=== PATIENT | female | born 1940 | race Hispanic/Latino ===

== ENCOUNTER 2016-11-27 21:58 | Emergency (ER) | payer MEDICARE, OTHER ==
[2016-11-27] MEDS ORDERED: NACL 0.9% 1000 ML 1,000 ML IV ONE ×2 (22:51→23:17)
--- NOTE | 2016-11-27 23:22 | Emergency Department Report ---
ED Abdominal Pain HPI - General Chief Complaint: Nausea/Vomiting/Diarrhea Stated Complaint: NAUSEA/EMESIS Time Seen by Provider: 11/27/16 23:11 Source: patient Mode of arrival: Stretcher Limitations: No Limitations - History of Present Illness Initial Comments: Patient is a 75-year-old female with a history of hypertension, diabetes, tremors who presents with 5 hours of abdominal cramping, nausea, vomiting, and diarrhea. Patient reports she had lunch 11:00 AM at home and then later in the afternoon started to vomit and have diarrhea, patient reports 13 episodes of vomiting non bloody nonbilious and diarrhea nonbloody. Eyes no fevers, chills, shortness of breath, chest pain, trauma, travel, new antibiotics, or sick contacts. MD Complaint: abdominal pain, other (NVD) -: hour(s) (5) Location: diffuse Radiation: none Migration to: no migration Severity: moderate Severity scale (0 -10): 5 Consistency: constant Improves With: nothing Worsens With: nothing Context: possible food poisoning Associated Symptoms: nausea, vomiting, diarrhea - Related Data Previous Rx's Medication Instructions Recorded Last Taken Type Ondansetron [Zofran ODT TAB] 8 mg PO Q8HR PRN #12 tab.rapdis 11/28/16 Unknown Rx Allergies Allergy/AdvReac Type Severity Reaction Status Date / Time codeine AdvReac Unknown Verified 11/27/16 23:06 lovastatin [From Mevacor] AdvReac Unknown Verified 11/27/16 23:06 ED Review of Systems ROS: Stated complaint: NAUSEA/EMESIS Other details as noted in HPI Comment: All other systems reviewed and negative ED Past Medical Hx - Past Medical History Previous Medical History?: Yes Hx Congestive Heart Failure: Yes Hx Diabetes: Yes - Surgical History Past Surgical History?: Yes Hx Internal Defibrillator: Yes - Social History Smoking Status: Former Smoker - Medications Home Medications: Home Medications Medication Instructions Recorded Confirmed Last Taken Type Ondansetron [Zofran ODT TAB] 8 mg PO Q8HR PRN #12 tab.rapdis 11/28/16 Unknown Rx ED Physical Exam - General Limitations: No Limitations General appearance: alert, in no apparent distress - Head Head exam: Present: atraumatic, normocephalic - Eye Eye exam: Present: normal appearance - ENT ENT exam: Present: mucous membranes moist - Neck Neck exam: Present: normal inspection - Respiratory Respiratory exam: Present: normal lung sounds bilaterally. Absent: respiratory distress - Cardiovascular Cardiovascular Exam: Present: regular rate, normal rhythm. Absent: systolic murmur, diastolic murmur, rubs, gallop - GI/Abdominal GI/Abdominal exam: Present: soft, tenderness (diffuse), normal bowel sounds. Absent: distended, guarding, rebound, rigid, mass, hernia - Extremities Exam Extremities exam: Present: normal inspection - Back Exam Back exam: Present: normal inspection - Neurological Exam Neurological exam: Present: alert, oriented X3 - Psychiatric Psychiatric exam: Present: normal affect, normal mood - Skin Skin exam: Present: warm, dry, intact, normal color. Absent: rash ED Course Vital Signs 11/27/16 11/27/16 11/27/16 22:40 23:07 23:12 Temperature 97.8 F Pulse Rate 82 84 Respiratory 18 18 18 Rate Blood Pressure 168/75 Blood Pressure 168/75 153/74 [Left] O2 Sat by Pulse 100 100 Oximetry 11/28/16 11/28/16 01:08 03:06 Temperature Pulse Rate 86 84 Respiratory 16 18 Rate Blood Pressure Blood Pressure 152/65 148/62 [Left] O2 Sat by Pulse 97 100 Oximetry ED Medical Decision Making - Lab Data Result diagrams: 11/27/16 22:56 11/27/16 22:56 - EKG Data -: EKG Interpreted by Me (23:26) EKG shows normal: sinus rhythm, axis (normal axis, no LVH), intervals (QTc:484ms ), QRS complexes, ST-T waves ((-)ST T changes, no STEMI) Rate: normal (77bpm) - EKG Data When compared to previous EKG there are: previous EKG unavailable - Radiology Data Radiology results: report reviewed - Medical Decision Making X-ray abdomen: Acute pathology as visualized by me. No air-fluid levels. No dilation of bowel loops. Pt re-evaluated, patient is now walking in the ED and reports all her sx have subsided. pt and son report they think her nervousness causes her to throw up, however I did explain to them she still needs PMD follow up and may need GI follow up, they understood Critical care attestation.: If time is entered above; I have spent that time in minutes in the direct care of this critically ill patient, excluding procedure time. ED Disposition Clinical Impression: Abdominal pain, Nausea & vomiting, Dehydration Disposition: DISCHARGED TO HOME OR SELFCARE Is pt being admited?: No Condition: Stable Instructions: Acute Abdominal Pain (ED), Acute Nausea and Vomiting (ED), Dehydration (ED) Prescriptions: Ondansetron [Zofran ODT TAB] 8 mg PO Q8HR PRN #12 tab.rapdis PRN Reason: nausea Referrals: PRIMARY CARE,MD [Primary Care Provider] - 3-5 Days
[2016-11-27 23:35] LABS: Calcium 9.7 mg/dL (8.4-10.2); Chloride 99.2 mmol/L (98-107); Potassium 4.1 mmol/L (3.6-5.0)
[2016-11-27 23:48] LABS: Alanine Aminotransferase 22 units/L (7-56); Albumin 4.3 g/dL (3.9-5); Albumin/Globulin Ratio 1.4 %; Alkaline Phosphatase 118 units/L (35-129); Bilirubin,Total 0.5 mg/dL (0.1-1.2); Lipase 39 units/L (13-60); Total Protein 7.4 g/dL (6.3-8.2)
[2016-11-28 00:02] LABS: Basophils % (Auto) 0.3 % (0.0-1.8); Eosinophils % (Auto) 1.2 % (0.0-4.3); Hematocrit 43.7 % (30.3-42.9); Hemoglobin 14.5 gm/dl (10.1-14.3); Mean Corpuscular HGB Conc 33 % (30-34); Mean Corpuscular Hemoglobin 32 pg (28-32); Mean Corpuscular Volume 96 fl (79-97); Red Blood Count 4.56 M/mm3 (3.65-5.03); White Blood Count 14.7 K/mm3 (4.5-11.0)
[2016-11-28 00:05] LABS: Platelet Count 68 K/mm3 (140-440)
[2016-11-28 00:12] LABS: Bilirubin,Direct < 0.2 mg/dL (0-0.2); Bilirubin,Indirect 0.3 mg/dL
[2016-11-28 03:08] VITALS: BP 148/62
--- NOTE | 2016-11-28 09:03 | XRay Report ---
Flat and upright views of the abdomen. History: Abdominal pain. Findings: Several loops of gas-filled small bowel are seen in the upper abdomen with a paucity of gas in the distal small bowel and colon. No free air seen on upright view. No significant intra-abdominal calcifications or organomegaly are seen. The bony structures are unremarkable. Impression: Local small bowel ileus versus early small bowel obstruction.
== END 2016-11-28 03:50 | disposition home or self-care (01) ==
LOC: ED 21:58
DX: E86.0 Dehydration (principal); R10.9 Unspecified abdominal pain; R11.2 Nausea with vomiting, unspecified; I50.9 Heart failure, unspecified; E11.9 Type 2 diabetes mellitus without complications; Z88.5 Allergy status to narcotic agent; Z87.891 Personal history of nicotine dependence; Z88.8 Allergy status to other drugs, medicaments and biological substances
CPT/HCPCS: 36415; 74020; 80048; 80074; 83690; 83735; 84484; 85025; 93005; 93010; 96360; 96361; 99285; J7030

== ENCOUNTER 2021-03-05 11:45 | Emergency (ER) | payer MEDICARE, OTHER ==
--- NOTE | 2021-03-05 11:57 | Event Note ---
ED Screening Note Date of service: 03/05/21 Time: 11:57 ED Screening Note: Patient complains of chest pain and abdominal pain for 10 days Has been seen at injury twice for the same This initial assessment/diagnostic orders/clinical plan/treatment(s) is/are subject to change based on patients health status, clinical progression and re- assessment by fellow clinical providers in the ED. Further treatment and workup at subsequent clinical providers discretion. Patient/guardian urged not to elope from the ED as their condition may be serious if not clinically assessed and managed. Initial orders include: Labs EKG Chest x-ray
[2021-03-05 12:10] VITALS: BP 170/76
[2021-03-05 12:32] LABS: Basophils # (Auto) 0.1 K/mm3 (0.0-0.1); Basophils % (Auto) 0.8 % (0.0-1.8); Eosinophils # (Auto) 0.5 K/mm3 (0.0-0.4); Eosinophils % (Auto) 5.9 % (0.0-4.3); Hematocrit 39.7 % (30.3-42.9); Hemoglobin 13.6 gm/dl (10.1-14.3); Lymphocytes # (Auto) 1.7 K/mm3 (1.2-5.4); Lymphocytes % (Auto) 19.6 % (13.4-35.0); Mean Corpuscular HGB Conc 34 % (30-34); Mean Corpuscular Volume 100 fl (79-97); Monocytes # (Auto) 0.6 K/mm3 (0.0-0.8); Monocytes % (Auto) 6.6 % (0.0-7.3); Platelet Count 113 K/mm3 (140-440); Red Blood Count 3.98 M/mm3 (3.65-5.03); Red Cell Distribution Width 13.6 % (13.2-15.2)
[2021-03-05 12:53] LABS: Alanine Aminotransferase 15 units/L (7-56); Albumin 4.1 g/dL (3.9-5); Blood Urea Nitrogen 10 mg/dL (7-17); Hemolysis Index 5
[2021-03-05 12:59] LABS: BUN/Creatinine Ratio 14
[2021-03-05 13:46] LABS: Bilirubin,Urine NEG (Negative); Blood,Urine NEG (Negative); Color,Urine Yellow (Yellow); Protein,Urine <15 mg/dL mg/dL (Negative); Urobilinogen,Urine < 2.0 mg/dL (<2.0)
--- NOTE | 2021-03-05 14:28 | XRay Report ---
CHEST 2 VIEWS 1401 INDICATION / CLINICAL INFORMATION: CHEST PAIN COMPARISON: 05/05/2020 FINDINGS: SUPPORT DEVICES: Pacer is again seen HEART / MEDIASTINUM: No significant abnormality. LUNGS / PLEURA: Moderate bilateral chronic pulmonary changes are again seen. Considering technique di fferences I do not see obvious acute infiltrate. No pleural effusions are seen. No pneumothorax. ADDITIONAL FINDINGS: No significant additional findings. IMPRESSION: No significant acute abnormality Signer Name: Rogelio Galindo MD Signed: 03/05/2021 2:23 PM Workstation Name: [id number]
[2021-03-05] MEDS ORDERED: ONDANSETRON 4 MG ODT TAB PO ONE (15:17)
[2021-03-05] MEDS ORDERED: traMADol 50 MG TAB PO ONE (15:17)
[2021-03-05] MEDS ORDERED: SUCRALFATE 1 GM/10 ML ORAL LIQD PO ONE (15:18)
--- NOTE | 2021-03-05 16:22 | Emergency Department Report ---
ED Abdominal Pain HPI - General Chief Complaint: Abdominal Pain Stated Complaint: STOMACH PAIN NAUSEA, CHEST PAIN Time Seen by Provider: 03/05/21 11:57 Source: patient Mode of arrival: Wheelchair Limitations: No Limitations - History of Present Illness Initial Comments: Patient is 80-year-old female who is presenting with abdominal discomfort. States the abdominal pain is in the epigastric region. There is no radiation. States she does feel quite nauseous but has not only vomited once or twice. Symptoms been present for the past 2 weeks. Patient is going to emergency department 3 times at outside facilities during this time frame. States she had a CT scan and ultrasound which both were negative. 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 Patient states she was started on omeprazole but still having symptoms and is here to get some help with the discomfort she is having. Severity scale (0 -10): 10 - Related Data Home Medications Medication Instructions Recorded Confirmed Last Taken Advair Diskus 250-50 mcg 1 IH BID 05/06/20 Unknown Atorvastatin 40 mg PO DAILY 05/06/20 05/06/20 Unknown Eplerenone 25 mg PO DAILY 05/06/20 05/06/20 Unknown Fish Oil Story-3 Softgel 1,000 mg PO DAILY 05/06/20 05/06/20 Unknown Forteo 20 mcg PO DAILY 05/06/20 05/06/20 Unknown Gabapentin 600 mg PO BID 05/06/20 05/06/20 Unknown Levothyroxine 125 mcg PO DAILY 05/06/20 05/06/20 Unknown Losartan [Cozaar] 100 mg PO DAILY 05/06/20 05/06/20 Unknown NIFEdipine 30 mg PO DAILY 05/06/20 05/06/20 Unknown Nortriptyline 25 mg PO BID 05/06/20 05/06/20 Unknown Primidone 50 mg PO 05/06/20 Unknown Vitamin B-2 200 mg PO DAILY 05/06/20 05/06/20 Unknown Vitamin D (Nf) 400 PO 05/06/20 Unknown Zolpidem 10 mg PO HS 05/06/20 05/06/20 Unknown hydrALAZINE 25 mg PO Q8H 05/06/20 05/06/20 Unknown Previous Rx's Medication Instructions Recorded Last Taken Type Ondansetron [Zofran ODT TAB] 8 mg PO Q8HR PRN #12 tab.rapdis 11/28/16 Unknown Rx Pantoprazole [Protonix TAB] 40 mg PO QDAC #30 tablet 05/10/20 Unknown Rx Ondansetron [Zofran Odt] 4 mg PO Q8HR #10 tab.rapdis 03/05/21 Unknown Rx Sucralfate [Carafate] 1 gm PO Q6HR 15 Days udc 03/05/21 Unknown Rx traMADoL [Ultram] 50 mg PO Q6HR PRN #10 tablet 03/05/21 Unknown Rx Allergies Allergy/AdvReac Type Severity Reaction Status Date / Time codeine AdvReac Unknown Verified 03/05/21 11:55 lovastatin [From Mevacor] AdvReac Unknown Verified 03/05/21 11:55 ED Review of Systems ROS: Stated complaint: STOMACH PAIN NAUSEA, CHEST PAIN Other details as noted in HPI Comment: All other systems reviewed and negative ED Past Medical Hx - Past Medical History Hx Hypertension: Yes Hx Congestive Heart Failure: Yes Hx Diabetes: Yes Hx COPD: Yes - Surgical History Hx Pacemaker: Yes Hx Internal Defibrillator: Yes - Social History Smoking Status: Former Smoker - Medications Home Medications: Home Medications Medication Instructions Recorded Confirmed Last Taken Type Ondansetron [Zofran ODT TAB] 8 mg PO Q8HR [facility] 05/06/20 Unknown Rx Advair Diskus 250-50 mcg 1 IH BID 05/06/20 Unknown History Atorvastatin 40 mg PO DAILY 05/06/20 05/06/20 Unknown History Eplerenone 25 mg PO DAILY 05/06/20 05/06/20 Unknown History Fish Oil Story-3 Softgel 1,000 mg PO DAILY 05/06/20 05/06/20 Unknown History Forteo 20 mcg PO DAILY 05/06/20 05/06/20 Unknown History Gabapentin 600 mg PO BID 05/06/20 05/06/20 Unknown History Levothyroxine 125 mcg PO DAILY 05/06/20 05/06/20 Unknown History Losartan [Cozaar] 100 mg PO DAILY 05/06/20 05/06/20 Unknown History NIFEdipine 30 mg PO DAILY 05/06/20 05/06/20 Unknown History Nortriptyline 25 mg PO BID 05/06/20 05/06/20 Unknown History Primidone 50 mg PO 05/06/20 Unknown History Vitamin B-2 200 mg PO DAILY 05/06/20 05/06/20 Unknown History Vitamin D (Nf) 400 PO 05/06/20 Unknown History Zolpidem 10 mg PO HS 05/06/20 05/06/20 Unknown History hydrALAZINE 25 mg PO Q8H 05/06/20 05/06/20 Unknown History Pantoprazole [Protonix TAB] 40 mg PO QDAC #30 tablet 05/10/20 Unknown Rx Ondansetron [Zofran Odt] 4 mg PO Q8HR #10 tab.rapdis 03/05/21 Unknown Rx Sucralfate [Carafate] 1 gm PO Q6HR 15 Days udc 03/05/21 Unknown Rx traMADoL [Ultram] 50 mg PO Q6HR PRN #10 tablet 03/05/21 Unknown Rx ED Physical Exam - General Limitations: No Limitations General appearance: alert, in no apparent distress - Head Head exam: Present: atraumatic, normocephalic - Eye Eye exam: Present: normal appearance - ENT ENT exam: Present: mucous membranes moist - Neck Neck exam: Present: normal inspection - Respiratory Respiratory exam: Present: normal lung sounds bilaterally. Absent: respiratory distress, wheezes, rales - Cardiovascular Cardiovascular Exam: Present: regular rate, normal rhythm. Absent: normal heart sounds, systolic murmur, diastolic murmur, rubs, gallop - GI/Abdominal GI/Abdominal exam: Present: soft, tenderness (epigastric), normal bowel sounds. Absent: distended, guarding, rebound - Extremities Exam Extremities exam: Present: normal inspection - Back Exam Back exam: Present: normal inspection - Neurological Exam Neurological exam: Present: alert, oriented X3 - Psychiatric Psychiatric exam: Present: normal affect, normal mood - Skin Skin exam: Present: warm, dry, intact, normal color. Absent: rash ED Course Vital Signs 03/05/21 12:07 Temperature 98.2 F Pulse Rate 61 Respiratory 24 Rate Blood Pressure 170/76 O2 Sat by Pulse 95 Oximetry ED Medical Decision Making - Lab Data Result diagrams: 03/05/21 12:16 03/05/21 12:16 Lab Results 03/05/21 03/05/21 03/05/21 Range/Units 12:16 12:16 12:16 WBC 8.5 (4.5-11.0) K/mm3 RBC 3.98 (3.65-5.03) M/mm3 Hgb 13.6 (10.1-14.3) gm/dl Hct 39.7 (30.3-42.9) % MCV 100 H (79-97) fl MCH 34 H (28-32) pg MCHC 34 (30-34) % RDW 13.6 (13.2-15.2) % Plt Count 113 L (140-440) K/mm3 Lymph % (Auto) 19.6 (13.4-35.0) % Stephens % (Auto) 6.6 (0.0-7.3) % Eos % (Auto) 5.9 H (0.0-4.3) % Baso % (Auto) 0.8 (0.0-1.8) % Lymph # (Auto) 1.7 (1.2-5.4) K/mm3 Stephens # (Auto) 0.6 (0.0-0.8) K/mm3 Eos # (Auto) 0.5 H (0.0-0.4) K/mm3 Baso # (Auto) 0.1 (0.0-0.1) K/mm3 Seg Neutrophils % 67.1 (40.0-70.0) % Seg Neutrophils # 5.7 (1.8-7.7) K/mm3 Sodium 145 (137-145) mmol/L Potassium 3.4 L (3.6-5.0) mmol/L Chloride 106.5 (98-107) mmol/L Carbon Dioxide 26 (22-30) mmol/L Anion Gap 16 mmol/L BUN 10 (7-17) mg/dL Creatinine 0.7 (0.6-1.2) mg/dL Estimated GFR > 60 ml/min BUN/Creatinine Ratio 14 % Glucose 107 H (65-100) mg/dL Calcium 10.0 (8.4-10.2) mg/dL Total Bilirubin 0.40 (0.1-1.2) mg/dL AST 27 (5-40) units/L ALT 15 (7-56) units/L Alkaline Phosphatase 135 H (35-129) units/L Troponin T < 0.010 < 0.010 (0.00-0.029) ng/mL Total Protein 6.6 (6.3-8.2) g/dL Albumin 4.1 (3.9-5) g/dL Albumin/Globulin Ratio 1.6 % Lipase (13-60) units/L Urine Color (Yellow) Urine Turbidity (Clear) Urine pH (5.0-7.0) Ur Specific [place] (1.003-1.030) Urine Protein (Negative) mg/dL Urine Glucose (UA) (Negative) mg/dL Urine Ketones (Negative) mg/dL Urine Blood (Negative) Urine Nitrite (Negative) Ur Reducing Substances Urine Bilirubin (Negative) Urine Ictotest Urine Urobilinogen (<2.0) mg/dL Ur Leukocyte Esterase (Negative) Urine WBC (Auto) (0.0-6.0) /HPF Urine RBC (Auto) (0.0-6.0) /HPF U Epithel Cells (Auto) (0-13.0) /HPF 03/05/21 03/05/21 Range/Units 12:16 Unknown WBC (4.5-11.0) K/mm3 RBC (3.65-5.03) M/mm3 Hgb (10.1-14.3) gm/dl Hct (30.3-42.9) % MCV (79-97) fl MCH (28-32) pg MCHC (30-34) % RDW (13.2-15.2) % Plt Count (140-440) K/mm3 Lymph % (Auto) (13.4-35.0) % Stephens % (Auto) (0.0-7.3) % Eos % (Auto) (0.0-4.3) % Baso % (Auto) (0.0-1.8) % Lymph # (Auto) (1.2-5.4) K/mm3 Stephens # (Auto) (0.0-0.8) K/mm3 Eos # (Auto) (0.0-0.4) K/mm3 Baso # (Auto) (0.0-0.1) K/mm3 Seg Neutrophils % (40.0-70.0) % Seg Neutrophils # (1.8-7.7) K/mm3 Sodium (137-145) mmol/L Potassium (3.6-5.0) mmol/L Chloride (98-107) mmol/L Carbon Dioxide (22-30) mmol/L Anion Gap mmol/L BUN (7-17) mg/dL Creatinine (0.6-1.2) mg/dL Estimated GFR ml/min BUN/Creatinine Ratio % Glucose (65-100) mg/dL Calcium (8.4-10.2) mg/dL Total Bilirubin (0.1-1.2) mg/dL AST (5-40) units/L ALT (7-56) units/L Alkaline Phosphatase (35-129) units/L Troponin T (0.00-0.029) ng/mL Total Protein (6.3-8.2) g/dL Albumin (3.9-5) g/dL Albumin/Globulin Ratio % Lipase 39 (13-60) units/L Urine Color Yellow (Yellow) Urine Turbidity Slightly-cloudy (Clear) Urine pH 7.0 (5.0-7.0) Ur Specific [place] 1.010 (1.003-1.030) Urine Protein <15 mg/dl (Negative) mg/dL Urine Glucose (UA) Neg (Negative) mg/dL Urine Ketones Neg (Negative) mg/dL Urine Blood Neg (Negative) Urine Nitrite Neg (Negative) Ur Reducing Substances Not Reportable Urine Bilirubin Neg (Negative) Urine Ictotest Not Reportable Urine Urobilinogen < 2.0 (<2.0) mg/dL Ur Leukocyte Esterase Neg (Negative) Urine WBC (Auto) 2.0 (0.0-6.0) /HPF Urine RBC (Auto) 1.0 (0.0-6.0) /HPF U Epithel Cells (Auto) < 1.0 (0-13.0) /HPF - Medical Decision Making Patient is a 80-year-old female who is presenting with some epigastric discomfort. She has had negative CTs and ultrasounds that within the last week. Do not feel as though any additional imaging is warranted given the pa suze's normal vital signs and normal laboratory studies. Patient given a dose of Zofran and Carafate Bentyl and she will be given some medication for symptomatic relief as an outpatient discharged home. Critical care attestation.: If time is entered above; I have spent that time in minutes in the direct care of this critically ill patient, excluding procedure time. ED Disposition Clinical Impression: Gastritis Disposition: DC-01 TO HOME OR SELFCARE Is pt being admited?: No Does the pt Need Aspirin: No Condition: Stable Instructions: Abdominal Pain (ED), Gastritis, Adult, [id number] Referrals: PRIMARY CARE,MD [Primary Care Provider] - 3-5 Days Time of Disposition: 16:24
--- NOTE | 2021-03-06 11:50 | Electrocardiograph Report ---
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
== END 2021-03-05 17:12 | disposition home or self-care (01) ==
LOC: ED 11:45
DX: K29.70 Gastritis, unspecified, without bleeding (principal); I11.0 Hypertensive heart disease with heart failure; I50.9 Heart failure, unspecified; E11.9 Type 2 diabetes mellitus without complications; J44.9 Chronic obstructive pulmonary disease, unspecified; Z98.890 Other specified postprocedural states; Z87.891 Personal history of nicotine dependence; Z79.899 Other long term (current) drug therapy; Z88.6 Allergy status to analgesic agent; Z88.8 Allergy status to other drugs, medicaments and biological substances
CPT/HCPCS: 36415; 71046; 80053; 81001; 83690; 84484; 85025; 93005; Q0162